=== PATIENT | female | born 1995 | race Two or more races ===

== ENCOUNTER 2023-09-24 10:04 | Emergency (ER) | payer OTHER ==
[~2023-09-24] VITALS: Ht 152.4 cm; Wt 58.1 kg
[2023-09-24] MEDS ORDERED: 0.9 % SODIUM CHLORIDE 1,000 ML IV STA (11:10)
[2023-09-24] MEDS ORDERED: ONDANSETRON HCL 2 MG/ML VIAL IV STA (11:11)
[2023-09-24 11:22] LABS: HEMATOCRIT 35.8 % (36.0-45.00); HEMOGLOBIN 12.3 g/dL (12.0-15.00); MEAN CELL VOLUME 86.8 fL (80.00-100.00); MEAN CORPUSCULAR HEMOGLOBIN 29.8 pg (27.00-32.0); MEAN CORPUSCULAR HGB CONC 34.4 g/dl (32.0-36.0); PLATELET COUNT 299 K/uL (150-450); RED BLOOD COUNT 4.13 M/uL (4.00-6.00); RED CELL DISTRIBUTION WIDTH 12.9 % (11.5-14.5)
[2023-09-24 11:40] LABS: CALCIUM 9.6 mg/dL (8.5-10.1); CREATININE SERUM 0.49 mg/dL (0.55-1.02); GFR 151.49; POTASSIUM 3.8 mEq/L (3.5-5.1)
[2023-09-24 14:19] LABS: PH,URINE 6.5 (5.0-8.0); URINE APPEARANCE Cloudy; URINE BILIRRUBIN Negative (NEGATIVE); URINE BLOOD Negative; URINE COLOR Yellow; URINE GLUCOSE Negative (NEGATIVE); URINE LEUKOCYTE Trace; URINE NITRATE Negative; URINE PROTEIN Negative (NEGATIVE); URINE UROBILINOGEN 0.2 E.U./dl
[2023-09-24 14:23] LABS: URINE BACTERIA 5686.1 uL (0.0-1933); URINE EPITHELIAL CELLS 14.2 uL (0.0-38.8); URINE RBC 16.9 uL (0.0-20.8); URINE WBC 111.9 uL (0.0-23.2)
[2023-09-24 14:55] LABS: URINE YEAST NEGATIVE /hpf
== END 2023-09-24 15:30 | disposition home or self-care (01) ==
LOC: ER 10:04
PROVIDERS: General Practice
DX: O23.42 Unspecified infection of urinary tract in pregnancy, second trimester (principal); N39.0 Urinary tract infection, site not specified; O99.611 Diseases of the digestive system complicating pregnancy, first trimester; R19.7 Diarrhea, unspecified; K92.89 Other specified diseases of the digestive system; Z3A.14 14 weeks gestation of pregnancy; Z20.822 Contact with and (suspected) exposure to COVID-19

== ENCOUNTER 2023-09-29 15:07 | Emergency (ER) | payer OTHER ==
[~2023-09-29] VITALS: Ht 152.4 cm; Wt 58.1 kg
[2023-09-29] MEDS ORDERED: [UNRECOGNIZED DRUG - OTHER] (15:42)
[2023-09-29] MEDS ORDERED: PRENA1 TRUE CO1 EACH PO (15:42)
[2023-09-29] MEDS ORDERED: IPRATROPIUM BROMIDE 0.5 MG/2.5 ML AMPUL.NEB IH ONE (16:30)
[2023-09-29] MEDS ORDERED: GUAIFENESIN 100 MG/5 ML BLIST.PACK PO ONE (16:30)
[2023-09-29] MEDS ORDERED: LEVALBUTEROL HCL 1.25 MG/3 ML SOLUTION IH ONE (16:30)
[2023-09-29 16:43] LABS: HEMATOCRIT 33.4 % (36.0-45.00); HEMOGLOBIN 11.8 g/dL (12.0-15.00); MEAN CELL VOLUME 85.7 fL (80.00-100.00); MEAN CORPUSCULAR HEMOGLOBIN 30.2 pg (27.00-32.0); MEAN CORPUSCULAR HGB CONC 35.3 g/dl (32.0-36.0); PLATELET COUNT 352 K/uL (150-450); RED BLOOD COUNT 3.89 M/uL (4.00-6.00); RED CELL DISTRIBUTION WIDTH 12.8 % (11.5-14.5)
== END 2023-09-29 18:19 | disposition home or self-care (01) ==
LOC: ER 15:07
PROVIDERS: General Practice
DX: R53.81 Other malaise (principal); J06.9 Acute upper respiratory infection, unspecified; R05.9 Cough, unspecified; Z20.822 Contact with and (suspected) exposure to COVID-19

== ENCOUNTER 2024-03-16 10:49 | Inpatient (IN) | payer OTHER ==
[~2024-03-16] VITALS: Ht 152.4 cm; Wt 69.9 kg
[~2024-03-16 10:49] MED LIST: PRENA1 TRUE CO1 EACH PO; [UNRECOGNIZED DRUG - OTHER]
[2024-03-16] MEDS ORDERED: OXYTOCIN 500 ML IV SCH (11:45)
[2024-03-16 12:02] LABS: HEMATOCRIT 37.4 % (36.0-45.00); HEMOGLOBIN 12.7 g/dL (12.0-15.00); MEAN CELL VOLUME 87.3 fL (80.00-100.00); MEAN CORPUSCULAR HEMOGLOBIN 29.7 pg (27.00-32.0); PLATELET COUNT 234 K/uL (150-450); RED BLOOD COUNT 4.28 M/uL (4.00-6.00); RED CELL DISTRIBUTION WIDTH 13.7 % (11.5-14.5)
[2024-03-16] MEDS ORDERED: RINGERS SOLUTION,LACTATED 1,000 ML IV SCH (12:15)
[2024-03-16 12:23] LABS: PH,URINE 5.5 (5.0-8.0); URINE APPEARANCE Clear; URINE BILIRRUBIN Negative (NEGATIVE); URINE BLOOD Moderate; URINE COLOR Yellow; URINE GLUCOSE Negative (NEGATIVE); URINE KETONE Negative (NEGATIVE); URINE LEUKOCYTE Trace; URINE NITRATE Negative; URINE PROTEIN Trace (NEGATIVE); URINE UROBILINOGEN 0.2 E.U./dl
[2024-03-16 12:28] LABS: URINE EPITHELIAL CELLS 59.5 uL (0.0-38.8); URINE RBC 9.7 uL (0.0-20.8); URINE WBC 58.9 uL (0.0-23.2)
[2024-03-16 12:31] LABS: ALBUMIN 3.1 gm/dL (3.4-5.0); BILIRUBIN TOTAL 0.37 mg/dL (0.3-1.2); CALCIUM 9.6 mg/dL (8.5-10.1); CREATININE SERUM 0.65 mg/dL (0.55-1.02); GFR 108.53; GLOBULINA 3.3 G/DL (2.4-3.5); POTASSIUM 4.55 mEq/L (3.5-5.1); TOTAL PROTEIN 6.4 gm/dL (6.4-8.2)
[2024-03-16 12:32] LABS: INR < 0.93; PARTIAL THROMBOPLASTIN TIME 29.9 SECONDS (22.0-34.0); PROTHROMBIN TIME 9.9 SECONDS (9.0-11.5)
[2024-03-16] MEDS ORDERED: OXYTOCIN 20 UNITS/1000ML RL PIGGYBAG IV ONE (16:40)
[2024-03-16] MEDS ORDERED: ERYTHROMYCIN BASE 1 GM TUBE OP ONE ×2 (16:40→20:00)
[2024-03-16] MEDS ORDERED: LIDOCAINE HCL 1% 10ML VIAL ONE (16:41)
[2024-03-16] MEDS ORDERED: CHLORHEXIDINE GLUCONATE 120 ML BOTTLE TOP ONE ×2 (16:41→20:00)
[2024-03-16] MEDS ORDERED: OXYTOCIN 1,000 ML IV SCH (20:00)
[2024-03-16] MEDS ORDERED: LIDOCAINE HCL 1% 10ML VIAL IJ ONE (20:00)
[2024-03-16] MEDS ORDERED: IBUprofen 600 MG TABLET PO STA (20:35)
[2024-03-16] MEDS ORDERED: IBUprofen 600 MG TABLET PO ONE (20:40)
[2024-03-17] MEDS ORDERED: IBUprofen 600 MG TABLET PO SCH
[2024-03-17] MEDS ORDERED: DOCUSATE CALCIUM 240 MG CAPSULE PO SCH (09:00)
== END 2024-03-18 17:57 | disposition home or self-care (01) | DRG 768 ==
LOC: LDR 10:49 → OB/GYN 20:17
PROVIDERS: ADMIT Specialist; ATTEND Specialist
PROC: 10E0XZZ Delivery of Products of Conception, External Approach (ICD-10-PCS; principal; 2024-03-16)
PROC: 0DQR0ZZ Repair Anal Sphincter, Open Approach (ICD-10-PCS; 2024-03-16)
PROC: 0UQG7ZZ Repair Vagina, Via Natural or Artificial Opening (ICD-10-PCS; 2024-03-16)
PROC: 4A1HXCZ Monitoring of Products of Conception, Cardiac Rate, External Approach (ICD-10-PCS; 2024-03-16)
DX: O70.21 Third degree perineal laceration during delivery, IIIa (principal); Z37.0 Single live birth; Z3A.39 39 weeks gestation of pregnancy; Z20.822 Contact with and (suspected) exposure to COVID-19